=== PATIENT | male | born 1990 | race Caucasian/White ===

== ENCOUNTER 2016-05-08 17:43 | Emergency (ER) | payer MEDICAID, OTHER ==
--- NOTE | 2016-05-08 18:08 | PD ---
HPI Chief Complaint: HEAD INJURY Time Seen by Provider: 18:08 Travel History International Travel<30 days: No Contact w/Intl Traveler<30days: No History of Present Illness HPI 25-year-old male is brought to the emergency department by EMS for evaluation of head injury. Per EMS report the patient dropped a rock on top of his head about an hour ago and is complaining of head and neck pain. The patient states that he was working on a pool deck and lifted a large rock above his head which broke in half and then fell onto his head. He denies loss of consciousness. States when the rock hit the top of his head his head was bent downward. States that he immediately had pain in his neck. States that over the last hour he has developed pain in his head as well. She describes it as a pressure pain. States that the pain in his neck is aggravated with any movement of his neck. His pain is a 9 on a scale of 1-10. He states that he feels "disoriented " and states that he is having difficulty focusing. States that he is also very emotional, states he was crying earlier which is very unlike him. Denies numbness or tingling, weakness, saddle anesthesia, bowel or bladder incontinence , dizziness, nausea, vomiting. States that he does have chronic pain in bilateral hips and lower back that has been ongoing for over a year. Denies any medical conditions, denies taking any medications regularly. Denies alcohol or drug use. No other complaints. PFSH Past Medical History Medical History: Denies Significant Hx Past Surgical History Surgical History: No Previous Surgery Social History Alcohol Use: No Tobacco Use: No Substance Use: No Allergies-Medications (Allergen,Severity, Reaction): Coded Allergies: No Known Allergies (Unverified , 05/08/16) Reported Meds & Prescriptions Reported Meds & Active Scripts Active Naproxen 500 Mg Tab 500 Mg PO BID 7 Days Robaxin (Methocarbamol) 750 Mg Tab 750 Mg PO QID 5 Days Lortab (Hydrocodone-Acetaminophen) 5-325 Mg Tab 1 Tab PO Q6H PRN Review of Systems Except as stated in HPI: all other systems reviewed are Neg Physical Exam Narrative GENERAL: Well-nourished and well-developed pleasant male patient in no acute distress. Backboarded with cervical collar in place. SKIN: No obvious lacerations or abrasions noted. HEAD: Normocephalic and atraumatic. No bony point tenderness or crepitus noted throughout the scalp and facial bones. EYES: No scleral icterus, injection, or drainage. PERRLA. EOMI. No hyphema present. ENT: No septal hematoma or hemotympanum noted. Oropharynx is clear and the airway is patent. NECK: Supple and the trachea is midline. Midline cervical spine tenderness to palpation. No obvious deformities. CARDIOVASCULAR: Regular rate and rhythm. RESPIRATORY: Breath sounds are equal bilaterally with no accessory muscle use, wheezing, rhonchi, or crackles. GASTROINTESTINAL: Abdomen is soft, non-tender, and nondistended. MUSCULOSKELETAL: No obvious deformities, swelling, cyanosis, or ecchymosis is present throughout the upper and lower extremities. Patient has full range of motion without any signs of neurovascular compromise. Strength 5/5 upper and lower extremities equal bilaterally. BACK: Tenderness along sacral region, per patient this is not new. Nontender without any obvious deformities, bony point tenderness, or crepitus noted throughout the thoracic and lumbar vertebrae. NEUROLOGICAL: Awake, alert, and oriented. Normal speech and gait. Cranial nerves are grossly intact. Data Data Last Documented VS Vital Signs Date Time Temp Pulse Resp B/P Pulse Ox O2 Delivery O2 Flow Rate FiO2 05/08/16 19:25 100 Room Air 05/08/16 19:15 98.6 71 18 135/[address] Brain W/O Iv Contrast(Rout) (05/08/16 18:05) Ct Cerv Spine W/O Contrast (05/08/16 18:05) Iv Access Insert/Monitor (05/08/16 18:05) Ecg Monitoring (05/08/16 18:05) Oximetry (05/08/16 18:05) Morphine Inj (Morphine Inj) (05/08/16 18:15) Ondansetron Inj (Zofran Inj) (05/08/16 18:15) Sodium Chloride 0.9% Flush (Ns Flush) (05/08/16 18:15) Mri C Spine W/O Contrast (05/08/16 ) Diazepam (Valium) (05/08/16 21:00) Ketorolac Inj (Toradol Inj) (05/08/16 21:15) MDM Medical Decision Making Medical Screen Exam Complete: Yes Emergency Medical Condition: Yes Differential Diagnosis Concussion versus contusion versus fracture versus intracranial hemorrhage Narrative Course 25-year-old male presents to the emergency department by EMS for evaluation of headache and neck pain status post rock dropping onto his head. Patient is afebrile, vital signs are stable. No focal neurologic deficits. No loss consciousness. Patient does have midline cervical spine tenderness to palpation. Head and cervical spine CT imaging has been ordered and is pending. Head CT is negative for any acute abnormalities. CT of the cervical spine is negative for any acute abnormalities. I discussed findings with my attending physician Dr. Pérez who recommends MRI of cervical spine to rule out ligamentous injury due to patient's pain. MRI is negative for any acute abnormalities. Patient reports minimal improvement of symptoms with morphine. Patient is given Valium 5 mg orally and Toradol 30 mg IV. He'll be discharged with Lortab, Robaxin and naproxen. Discussed supportive care. Advised to follow-up with his PCP. Patient verbalizes understanding and agreement with treatment plan. Diagnosis Primary Impression: Cervical strain, acute Qualified Code: S16.1XXA - Cervical strain, acute, initial encounter Additional Impression: Minor closed head injury Referrals: Primary Care Physician Patient Instructions: Cervical Strain (ED), Contusion in Adults (ED), General Instructions, Head Injury (ED) Additional Instructions: Perform gentle stretches. Apply ice for 20 minutes on, 20 minutes off. Take medications as prescribed with food and a full glass of water. Do not take Lortab or Robaxin with alcohol or while driving. Follow-up with your Primary Care Physician. Return to the ED for any acute worsening of symptoms. Med/Other Pt SpecificInfo: Prescription(s) given Scripts Naproxen 500 Mg [id number] Mg PO BID 7 Days Ref 0 Prov:Ej Coyne MD 05/08/16 Methocarbamol (Robaxin)750 Mg [id number] Mg PO QID 5 Days Ref 0 Prov:Ej Coyne MD 05/08/16 Hydrocodone-Acetaminophen (Lortab)5-325 Mg Tab1 Tab PO Q6H PRN (PAIN GREATER THAN 6) #15 TAB Ref 0 Prov:Ej Coyne MD 05/08/16 Disposition: 01 DISCHARGE HOME Condition: Stable Aurelia Domingo May 08, 2016 18:08
[2016-05-08] MEDS ORDERED: SODIUM CHLORIDE 0.9% FLUSH 10 ML FLUSH IV FLUSH PRN (18:15)
[2016-05-08] MEDS ORDERED: MORPHINE SULFATE 4 MG/ML INJ IV PUSH ONE (18:15)
[2016-05-08] MEDS ORDERED: ONDANSETRON HCL 4 MG/2 ML VIAL IVP ONE (18:15)
--- NOTE | 2016-05-08 19:08 | RADRPT ---
EXAM DATE/TIME: 05/08/2016 18:48 [facility] COMPARISON: No previous studies available for comparison. INDICATIONS : Dropped rock on head today; head and neck pain. RADIATION DOSE: 56.35 CTDIvol (mGy) MEDICAL HISTORY : None SURGICAL HISTORY : None. ENCOUNTER: Initial ACUITY: 1 day PAIN SCALE: 5/10 LOCATION: cranial TECHNIQUE: Multiple contiguous axial images were obtained of the head. Using automated exposure control and adj ustment of the mA and/or kV according to patient size, radiation dose was kept as low as reasonably a chievable to obtain optimal diagnostic quality images. FINDINGS: CEREBRUM: The ventricles are normal for age. No evidence of midline shift, mass lesion, hemorrhage or acute in farction. No extra-axial fluid collections are seen. POSTERIOR FOSSA: The cerebellum and brainstem are intact. The 4th ventricle is midline. The cerebellopontine angle i s unremarkable. EXTRACRANIAL: The visualized portion of the orbits is intact. SKULL: The calvaria is intact. No evidence of skull fracture. CONCLUSION: No acute disease. Kris March MD on May 08, 2016 at 19:05 Board Certified Radiologist. This report was verified electronically.
--- NOTE | 2016-05-08 19:09 | RADRPT ---
EXAM DATE/TIME: 05/08/2016 18:50 [facility] COMPARISON: No previous studies available for comparison. INDICATIONS : Dropped rock on head today; head and neck pain. RADIATION DOSE: 38.62 CTDIvol (mGy) MEDICAL HISTORY : None SURGICAL HISTORY : None. ENCOUNTER: Initial ACUITY: 1 day PAIN SCALE: 6/10 LOCATION: neck TECHNIQUE: Volumetric scanning of the cervical spine was performed. Multiplanar reconstructions in the sagittal, coronal and oblique axial planes were performed. Using automated exposure control and adjustment o f the mA and/or kV according to patient size, radiation dose was kept as low as reasonably achievable to obtain optimal diagnostic quality images. FINDINGS: VERTEBRAE: Normal vertebral body height. ALIGNMENT: No evidence of subluxation. Mild scoliosis of the cervical spine is noted. C2-C3: The bony spinal canal is normal in size. No evidence of disc bulge or herniation. The neural forami na are bilaterally patent. C3-C4: The bony spinal canal is normal in size. No evidence of disc bulge or herniation. The neural forami na are bilaterally patent. C4-C5: The bony spinal canal is normal in size. No evidence of disc bulge or herniation. The neural forami na are bilaterally patent. C5-C6: The bony spinal canal is normal in size. No evidence of disc bulge or herniation. The neural forami na are bilaterally patent. C6-C7: The bony spinal canal is normal in size. No evidence of disc bulge or herniation. The neural forami na are bilaterally patent. C7-T1: The bony spinal canal is normal in size. No evidence of disc bulge or herniation. The neural forami na are bilaterally patent. CONCLUSION: Mild scoliosis of the cervical spine. No acute fracture or prevertebral soft tissue s welling. Kris March MD on May 08, 2016 at 19:07 Board Certified Radiologist. This report was verified electronically.
[2016-05-08 19:15] VITALS: BP 135/75; PULSE 71; RESP 18; TEMP 98.6; O2SAT 98
[2016-05-08 19:25] VITALS: O2SAT 100
[2016-05-08] MEDS ORDERED: DIAZEPAM 5 MG TAB PO ONE (21:00)
--- NOTE | 2016-05-08 21:06 | RADRPT ---
EXAM DATE/TIME: 05/08/2016 20:18 [facility] COMPARISON: No previous studies available for comparison. INDICATIONS : Head and neck pain after [place]oulder fell on head today. MEDICAL HISTORY : None. SURGICAL HISTORY : None. ENCOUNTER: Subsequent ACUITY: 1 day PAIN SCORE: 5/10 LOCATION: neck. TECHNIQUE: Multiplanar, multisequence MRI examination of the cervical spine was performed. FINDINGS: VERTEBRAE: Normal vertebral body height. Homogeneous marrow signal. ALIGNMENT: No evidence of subluxation. CORD: Normal configuration and signal. POST FOSSA: The cerebellar tonsils are normal in position. C2-C3: The thecal sac has a normal configuration. There is no evidence of disc herniation or spinal canal s tenosis. The neural foramina are patent bilaterally. C3-C4: The thecal sac has a normal configuration. There is no evidence of disc herniation or spinal canal s tenosis. The neural foramina are patent bilaterally. C4-C5: The thecal sac has a normal configuration. There is no evidence of disc herniation or spinal canal s tenosis. The neural foramina are patent bilaterally. C5-C6: The thecal sac has a normal configuration. There is no evidence of disc herniation or spinal canal s tenosis. The neural foramina are patent bilaterally. C6-C7: The thecal sac has a normal configuration. There is no evidence of disc herniation or spinal canal s tenosis. The neural foramina are patent bilaterally. C7-T1: The thecal sac has a normal configuration. There is no evidence of disc herniation or spinal canal s tenosis. The neural foramina are patent bilaterally. CONCLUSION: No acute disease. Kris March MD on May 08, 2016 at 21:04 Board Certified Radiologist. This report was verified electronically.
[2016-05-08] MEDS ORDERED: KETOROLAC TROMETHAMINE 30 MG/ML (IVP) VIAL IV PUSH ONE (21:15)
[2016-05-08] MEDS ORDERED: NAPR500T PO (21:20)
[2016-05-08] MEDS ORDERED: ROBA750T PO (21:20)
[2016-05-08] MEDS ORDERED: HYDR-3533 PO (21:20)
[2016-05-08] MEDS ORDERED: ACETAMINOPHEN/HYDROcodone 325 MG/5 MG TAB PO ONE (21:30)
== END 2016-05-08 21:47 | disposition home or self-care (01) ==
LOC: NEPC 17:43
DX: S16.1XXA Strain of muscle, fascia and tendon at neck level, initial encounter (principal); S09.90XA Unspecified injury of head, initial encounter; W20.8XXA Other cause of strike by thrown, projected or falling object, initial encounter; Y93.89 Activity, other specified; Y92.69 Other specified industrial and construction area as the place of occurrence of the external cause; Y99.0 Civilian activity done for income or pay
CPT/HCPCS: 70450; 72125; 72141; 96374; 96375; 99284; J1885; J2270; J2405

== ENCOUNTER 2016-08-25 20:19 | Emergency (ER) | payer MEDICAID, OTHER ==
[~2016-08-25] VITALS: Ht 182.9 cm; Wt 90.0 kg
[~2016-08-25 20:19] MED LIST: HYDR-3533 PO; NAPR500T PO; ROBA750T PO
--- NOTE | 2016-08-25 21:04 | PD ---
HPI Chief Complaint: psychiatric evaluation Time Seen by Provider: 21:00 Travel History International Travel<30 days: No Contact w/Intl Traveler<30days: No History of Present Illness HPI Patient comes in under [place] act by police after calling 911 requesting to talk someone at the suicide hotline. Patient states that he did not want to kill himself he just wants to talk to someone. Denies any homicidal or suicidal ideations. registration officer reports that when they responded found patient to be very emotional and volatile with his emotions. Patient reportedly has been going through some relationship issues with his which is causing him to feel stressed. Patient was found to have one Xanax pill in his pocket by police officers. Patient reports that he was given this by a coworker, who thought he may benefit from this secondary to his stress. Patient states he did not take it and forgot he actually had it. Patient does admit to drinking last night but denies any alcohol use today. Patient denies any medical concerns. Denies any chest pain, shortness breath, fevers, nausea, vomiting, headache, or numbness or tingling anywhere. PFSH Past Medical History Medical History: Denies Significant Hx Diminished Hearing: No Social History Alcohol Use: Yes Tobacco Use: No Substance Use: No Allergies-Medications (Allergen,Severity, Reaction): Coded Allergies: No Known Allergies (Unverified , 08/25/16) Reported Meds & Prescriptions Reported Meds & Active Scripts Active Review of Systems Except as stated in HPI: all other systems reviewed are Neg Physical Exam Narrative GENERAL: Well-developed, well nourished, in no acute distress, and non-ill appearing. SKIN: Focused skin assessment warm and dry. HEAD: Atraumatic. Normocephalic. EYES: Pupils equal and round. EOMI. No scleral icterus. No injection or drainage. ENT: No nasal bleeding or discharge. Mucous membranes pink and moist. NECK: Trachea midline. Supple. No nuclear rigidity. CARDIOVASCULAR: Regular rate and rhythm. No murmur appreciated. RESPIRATORY: No accessory muscle use. No respiratory distress. Clear to auscultation. Breath sounds equal bilaterally. MUSCULOSKELETAL: No obvious deformities. No clubbing. No cyanosis. No edema. Full range of motion. NEUROLOGICAL: Awake and alert. No obvious cranial nerve deficits. Motor grossly within normal limits. Normal speech. PSYCHIATRIC: Appropriate mood and affect; insight and judgment normal. Data Data Last Documented VS Vital Signs Date Time Temp Pulse Resp B/P Pulse Ox O2 Delivery O2 Flow Rate FiO2 08/25/16 21:28 77 20 137/70 97 Room Air 08/25/16 21:23 98.3 Orders Complete Blood Count With Diff (08/25/16 20:59) Comprehensive Metabolic Panel (08/25/16 20:59) Psych Screen (08/25/16 20:59) Drug Screen, Random Urine (08/25/16 20:59) Alcohol (Ethanol) (08/25/16 20:59) Salicylates (Aspirin) (08/25/16 20:59) Tylenol (Acetaminophen) (08/25/16 20:59) Potassium Chloride (Kcl) (08/25/16 22:45) Labs Laboratory Tests Test 08/25/16 21:10 White Blood Count 10.8 TH/MM3 Red Blood Count 5.12 MIL/MM3 Hemoglobin 15.4 GM/DL Hematocrit 44.9 % Mean Corpuscular Volume 87.7 FL Mean Corpuscular Hemoglobin 30.1 PG Mean Corpuscular Hemoglobin 34.3 % Concent Red Cell Distribution Width 13.3 % Platelet Count 208 TH/MM3 Mean Platelet Volume 9.4 FL Neutrophils (%) (Auto) 75.3 % Lymphocytes (%) (Auto) 14.3 % Monocytes (%) (Auto) 5.3 % Eosinophils (%) (Auto) 4.5 % Basophils (%) (Auto) 0.6 % Neutrophils # (Auto) 8.1 TH/MM3 Lymphocytes # (Auto) 1.5 TH/MM3 Monocytes # (Auto) 0.6 TH/MM3 Eosinophils # (Auto) 0.5 TH/MM3 Basophils # (Auto) 0.1 TH/MM3 CBC Comment DIFF FINAL Differential Comment Sodium Level 140 MEQ/L Potassium Level 3.3 MEQ/L Chloride Level 106 MEQ/L Carbon Dioxide Level 24.7 MEQ/L Anion Gap 9 MEQ/L Blood Urea Nitrogen 17 MG/DL Creatinine 1.29 MG/DL Estimat Glomerular Filtration 68 ML/MIN Rate Random Glucose 77 MG/DL Calcium Level 9.3 MG/DL Total Bilirubin 0.8 MG/DL Aspartate Amino Transf 16 U/L (AST/SGOT) Alanine Aminotransferase 20 U/L (ALT/SGPT) Alkaline Phosphatase 59 U/L Total Protein 7.3 GM/DL Albumin 3.9 GM/DL Salicylates Level LESS THAN 1.7 MG/DL Acetaminophen Level LESS THAN 2.0 MCG/ML Ethyl Alcohol Level LESS THAN 3 MG/DL MDM Medical Decision Making Medical Screen Exam Complete: Yes Emergency Medical Condition: Yes Differential Diagnosis Homicidal, suicidal, electrolyte abnormality, alcohol intoxication, stress reaction, adjustment disorder, other Narrative Course Patient was seen and examined. Labs were obtained and reviewed with the exception of urine drug screen. Patient's potassium was replaced. Patient medically cleared for further treatment and evaluation by psych. Final disposition per psych. Diagnosis Primary Impression: Medical clearance for psychiatric admission Additional Impression: Hypokalemia Condition: Stable Drew Belcher Aug 25, 2016 21:04
[2016-08-25 21:23] VITALS: BP 137/70; PULSE 77; RESP 20; TEMP 98.3; O2SAT 97
[2016-08-25 21:28] VITALS: BP 137/70; PULSE 77; RESP 20; O2SAT 97
[2016-08-25 22:10] LABS: AUTOMATED NEUTROPHIL # 8.1 TH/MM3 (1.8-7.7); BASOPHIL # 0.1 TH/MM3 (0-0.2); BASOPHIL % 0.6 % (0.0-2.0); EOSINOPHIL # 0.5 TH/MM3 (0-0.4); EOSINOPHIL % 4.5 % (0.0-4.0); HEMATOCRIT 44.9 % (39.0-51.0); HEMO FLAGS DIFF FINAL; LYMPH % 14.3 % (9.0-44.0); LYMPHOCYTE # 1.5 TH/MM3 (1.0-4.8); MEAN CELL VOLUME 87.7 FL (80.0-100.0); MEAN CORPUSCULAR HEMOGLOBIN 30.1 PG (27.0-34.0); MEAN CORPUSCULAR HGB CONC 34.3 % (32.0-36.0); MONO % 5.3 % (0.0-8.0); NEUT % 75.3 % (16.0-70.0); PLATELET COUNT 208 TH/MM3 (150-450); RED BLOOD COUNT 5.12 MIL/MM3 (4.50-5.90); RED CELL DISTRIBUTION WIDTH 13.3 % (11.6-17.2); WHITE BLOOD COUNT 10.8 TH/MM3 (4.0-11.0)
[2016-08-25 22:20] LABS: ANION GAP 9 MEQ/L (5-15); AST (GOT) 16 U/L (15-37); BICARBONATE 24.7 MEQ/L (21.0-32.0); BLOOD UREA NITROGEN 17 MG/DL (7-18); CHLORIDE 106 MEQ/L (98-107); GLOMERULAR FILTRATION RATE 68 ML/MIN (>89); POTASSIUM 3.3 MEQ/L (3.5-5.1); SODIUM (NA) 140 MEQ/L (136-145)
[2016-08-25 22:21] LABS: ALT (GPT) 20 U/L (12-78)
[2016-08-25 22:23] LABS: ACETAMINOPHEN LESS THAN 2.0 MCG/ML (10.0-30.0); ALKALINE PHOSPHATASE 59 U/L (45-117); TOTAL BILIRUBIN ADULT 0.8 MG/DL (0.2-1.0)
[2016-08-25] MEDS ORDERED: POTASSIUM CHLORIDE 20 MEQ CONTROLLED RELEASE TAB PO ONE (22:45)
[2016-08-26 02:54] VITALS: BP_SYST 123; BP_DIAS 56; BP_DIAS 66; PULSE 16; PULSE 62; PULSE 66; RESP 16; O2SAT 99
[2016-08-26 06:25] VITALS: BP 126/57; PULSE 72; RESP 18
[2016-08-26 10:58] LABS: AMPHETAMINE, URINE NEG (NEG); BARBITURATES, URINE NEG (NEG); COCAINE, URINE POS (NEG)
--- NOTE | 2016-08-26 13:35 | PD.PSY.CON ---
Provisional Diagnosis Admission Date [place] I. Polysubstance dependence, including benzodiazepines, cannabis, cocaine, alcohol and opiates [place] II. Referred [place] III. No significant medical history [place] IV. Marital conflict Orient V. 55 History of Present Illness Service Psychiatry Consult Requested By Primary Care Physician Unknown HPI The patient is a 25-year-old man, domicile with his , unemployed, without any previous psychiatric history, no previous psychiatric hospitalizations, no previous suicidal attempts, polysubstance dependence, including benzodiazepines, opiates, cannabis, alcohol, cocaine, who comes in under [place] act by police after calling 911 requesting to talk someone at the suicide hotline. Patient states that after an argument with his he felt very distressed and overwhelmed wanted to stay with somebody. Patient states that he did not want to kill himself he just wants to talk to someone. conservation officer reports that when they responded found patient to be very emotional and volatile with his emotions. Patient reportedly has been going through some relationship issues with his which is causing him to feel stressed. Patient was found to have one Xanax pill in his pocket by police officers. Patient reports that he was given this by a coworker, who thought he may benefit from this secondary to his stress. Patient states he did not take it and forgot he actually had it. At the moment of this evaluation the patient denies depressive symptoms, he has been speaking persistently with his , she was contacted in order to assure safety, she agree with discharge. The patient denies suicidal or homicidal ideation, he denies visual and auditory hallucinations. Patient reports daily use of multiple drugs, including cannabis , and opiates, benzodiazepines and cocaine, but he prefers not to to quantify. Review of Systems Constitutional: DENIES: Diaphoretic episodes, Fatigue, Fever, Weight gain, Weight loss, Chills, Dizziness, Change in appetite, Night Sweats Endocrine: DENIES: Heat/cold intolerance, Polydipsia, Polyuria, Polyphagia Eyes: DENIES: Blurred vision, Diplopia, Eye inflammation, Eye pain, Vision loss , Photosensitivity, Double Vision Ears, nose, mouth, throat: DENIES: Tinnitus, Hearing loss, Vertigo, Nasal discharge, Oral lesions, Throat pain, Hoarseness, Ear Pain, Running Nose, Epistaxis, Sinus Pain, Toothache, Odynophagia Respiratory: DENIES: Apneas, Cough, Snoring, Wheezing, Hemoptysis, Sputum production, Shortness of breath Cardiovascular: DENIES: Chest pain, Palpitations, Syncope, Dyspnea on Exertion , PND, Lower Extremity Edema, Orthopnea, Claudication Gastrointestinal: DENIES: Abdominal pain, Black stools, Bloody stools, Constipation, Diarrhea, Nausea, Vomiting, Difficulty Swallowing, Anorexia Genitourinary: DENIES: Sexual dysfunction, Urinary frequency, Urinary incontinence, Urgency, Hematuria, Dysuria, Nocturia, Penile Discharge, Testicular Pain, Testicular Swelling Hematologic/lymphatic: DENIES: Bruising, Lymphadenopathy Immunologic/allergic: DENIES: Eczema, Urticaria Neurologic: DENIES: Abnormal gait, Headache, Localized weakness, Paresthesias, Seizures, Speech Problems, Tremor, Poor Balance Psychiatric: DENIES: Anxiety, Confusion, Mood changes, Depression, Hallucinations, Agitation, Suicidal Ideation, Homicidal Ideation, Delusions Past Family Social History Coded Allergies: No Known Allergies (Unverified , 08/25/16) Discontinued Scripts Naproxen 500 Mg [id number] Mg PO BID 7 Days Ref 0 Prov:Ej Coyne MD 05/08/16 Methocarbamol (Robaxin)750 Mg [id number] Mg PO QID 5 Days Ref 0 Prov:Ej Coyne MD 05/08/16 Hydrocodone-Acetaminophen (Lortab)5-325 Mg Tab1 Tab PO Q6H PRN (PAIN GREATER THAN 6) #15 TAB Ref 0 Prov:Ej Coyne MD 05/08/16 Family History She denies psychiatric family history Social History Patient was born in [place], lives with in [facility], 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 Highest level of education 12th Patient's Strengths (min. 2) Verbal communication Physical Exam Vital Signs Vital Signs Date Time Temp Pulse Resp B/P Pulse Ox O2 Delivery O2 Flow Rate FiO2 08/26/16 06:25 72 18 126/57 08/26/16 02:54 99 08/25/16 21:28 Room Air 08/25/16 21:23 98.3 Lab Results Labs Laboratory Tests Test 08/25/16 21:10 White Blood Count 10.8 TH/MM3 Red Blood Count 5.12 MIL/MM3 Hemoglobin 15.4 GM/DL Hematocrit 44.9 % Mean Corpuscular Volume 87.7 FL Mean Corpuscular Hemoglobin 30.1 PG Mean Corpuscular Hemoglobin 34.3 % Concent Red Cell Distribution Width 13.3 % Platelet Count 208 TH/MM3 Mean Platelet Volume 9.4 FL Neutrophils (%) (Auto) 75.3 % Lymphocytes (%) (Auto) 14.3 % Monocytes (%) (Auto) 5.3 % Eosinophils (%) (Auto) 4.5 % Basophils (%) (Auto) 0.6 % Neutrophils # (Auto) 8.1 TH/MM3 Lymphocytes # (Auto) 1.5 TH/MM3 Monocytes # (Auto) 0.6 TH/MM3 Eosinophils # (Auto) 0.5 TH/MM3 Basophils # (Auto) 0.1 TH/MM3 CBC Comment DIFF FINAL Differential Comment Sodium Level 140 MEQ/L Potassium Level 3.3 MEQ/L Chloride Level 106 MEQ/L Carbon Dioxide Level 24.7 MEQ/L Anion Gap 9 MEQ/L Blood Urea Nitrogen 17 MG/DL Creatinine 1.29 MG/DL Estimat Glomerular Filtration 68 ML/MIN Rate Random Glucose 77 MG/DL Calcium Level 9.3 MG/DL Total Bilirubin 0.8 MG/DL Aspartate Amino Transf 16 U/L (AST/SGOT) Alanine Aminotransferase 20 U/L (ALT/SGPT) Alkaline Phosphatase 59 U/L Total Protein 7.3 GM/DL Albumin 3.9 GM/DL Salicylates Level LESS THAN 1.7 MG/DL Acetaminophen Level LESS THAN 2.0 MCG/ML Ethyl Alcohol Level LESS THAN 3 MG/DL Mental Status Examination Appearance man, good hygiene, [facility], age apparent, calm and cooperative Speech: Unremarkable Orientation: x3 Memory: Unremarkable Thought Process: Logical Thought Content: Unremarkable Hallucination Type: None Suicidal Ideation: No Previous Suicide Attempts: No Homicidal Ideation: No Previous Homicide Attempts: No Insight: Good Affect: Good Mood: Appropriate Motor Activity: Normal gait Assessment & Plan Problem List: (1) Polysubstance abuse Assessment & Plan: Patient does not present any evidence of depression, anxiety , edmundo and psychosis. He denies SI/HI/VH/AH. Recent suicidal statement was made in context of argument with his and exacerbated with substance intoxication. Patient does not meet criteria for psychiatric admission at this moment. [place] act will be lifted. ICD Code: F19.10 Assessment & Plan Estimated LOS: Prasanna Lopez MD Aug 26, 2016 13:35
== END 2016-08-26 13:00 | disposition home or self-care (01) ==
LOC: NEPD 20:19 → NEPJ 08-26 13:00
DX: F60.3 Borderline personality disorder (principal); E87.6 Hypokalemia
CPT/HCPCS: 80053; 80307; 85025; 99284